=== PATIENT | male | born 1935 | race Caucasian/White ===

== ENCOUNTER 2017-08-11 10:35 | Emergency (ER) | payer MEDICARE ==
[2017-08-11 13:19] LABS: #Basophils 0.1 thou/uL (0.0-0.2); #Eosinphils 0.2 thou/uL (0.0-0.7); #Lymphocytes 1.5 thou/uL (1.20-3.40); #Monocytes 0.7 thou/uL (0.11-0.59); #Neutrophils 7.7 thou/uL (1.40-6.50); %Basophils 0.5 % (0.0-1.0); %Eosinophils 1.7 % (0.0-10.0); %Lymphocytes 14.9 % (21.0-51.0); %Monocytes 6.6 % (0.0-10.0); %Neutrophils 76.2 % (42.0-75.0); Hemoglobin 13.8 g/dL (14.0-18.0); Mean Corpuscular HGB CONC 35.1 g/dL (32.0-36.0); Mean Corpuscular Hemoglobin 31.8 pg (27.0-31.0); Mean Corpuscular Volume 90.5 fl (80.0-94.0); Mean Platelet Volume 6.7 fL (7.4-10.4); Platelet Count 392 thou/uL (130-400); RBC Distribution Width 12.2 % (11.5-14.5); Red Blood Cell (RBC) Count 4.35 mill/uL (4.70-6.10); White Blood Cell (WBC) Count 10.1 thou/uL (4.8-10.8)
[2017-08-11 13:43] LABS: ALT (SGPT) 44 U/L (8-55); AST (SGOT) 90 U/L (5-34); Albumin 4.2 g/dL (3.4-4.8); Alkaline Phosphatase 102 U/L (40-150); Anion Gap 15 mmol/L (10-20); BUN (Urea Nitrogen) 32 mg/dL (8.4-25.7); Bilirubin, Total 0.3 mg/dL (0.2-1.2); CK (CPK) 149 U/L (30-200); Calc. Creatinine Clearance 0 mL/min (70-130); Calcium 10.5 mg/dL (7.8-10.44); Carbon Dioxide 26 mmol/L (23-31); Chloride 97 mmol/L (98-107); Estimated GFR-MDRD 51; Globulin 3.8 g/dL (2.4-3.5); Glucose 122 mg/dL (83-110); Potassium 4.5 mmol/L (3.5-5.1); Sodium 133 mmol/L (136-145)
[2017-08-11] MEDS ORDERED: Morphine 4 MG/ML VIAL ONE (14:21)
--- NOTE | 2017-08-11 14:22 | RAD ---
PORTABLE AP CHEST X-RAY: 08/11/2017 HISTORY: Shortness of breath. Left apical lung cancer, which involves the second rib. FINDINGS: There is asymmetric left apical pleural thickening. There is mild right apical calcified pleural thi ckening present. No discrete pulmonary nodule or mass is otherwise seen. The lungs are otherwise cl ear. A triple-lead left subclavian AICD device remains in place. The cardiac silhouette is magnifie d by projection. There is prominence of the right hilar and infrahilar structures. There is absence of a portion of the medial left second rib, which could be either post surgical or secondary to a ly tic lesion or osseous destruction of the medial aspect of the left posterior second rib. There is a remote fracture involving the right anterolateral fifth rib. IMPRESSION: 1. The medial aspect of the left posterior second rib is not visualized and there is asymmetric left apical pleural thickening. This may be related to the patient's known neoplastic process with destr uction and involvement of the posterior left second rib; however, confirmation with prior CT examinat ion is recommended. 2. Prominence of the right hilar structures. This may be related to prominence of the central vascu lature in this region, but lymphadenopathy or mass is a possibility. This would also be better evalu ated on CT exam. POS: SARAH
--- NOTE | 2017-09-19 22:13 | EKG ---
Test Reason : Blood Pressure : / mmHG Vent. Rate : 083 BPM Atrial Rate : 083 BPM P-R Int : 126 ms QRS Dur : 152 ms QT Int : 440 ms P-R-T Axes : 076 000 084 degrees QTc Int : 517 ms Normal sinus rhythm Non-specific intra-ventricular conduction block Cannot rule out Anterior infarct , age undetermined Abnormal ECG Confirmed by NAINA CANO D.O. ([id number]), continuity editor CHEVY LOUIE ([id number]) on 09/19/2017 10:13:13 PM Referred By: Confirmed By:NAINA CANO D.O.
== END 2017-08-11 15:17 | disposition home or self-care (01) ==
LOC: ERS 10:35
DX: M25.511 Pain in right shoulder (principal); M25.512 Pain in left shoulder; G89.3 Neoplasm related pain (acute) (chronic); Z87.891 Personal history of nicotine dependence; Z79.82 Long term (current) use of aspirin; Z79.899 Other long term (current) drug therapy
CPT/HCPCS: 36415; 71045; 80053; 82550; 83880; 85025; 93005; 96361; 96374; 96376; J2270